=== PATIENT | female | born 1975 | race Caucasian/White ===

== ENCOUNTER 2018-04-15 09:50 | Day surgery (SDC) | payer BC ==
[2018-04-14 11:08] VITALS: BMI 37.0
[2018-04-15] MEDS ORDERED: ceFAZolin SODIUM 1 GM VIAL ONE (11:04)
[2018-04-15] MEDS ORDERED: fentaNYL CITRATE 250 MCG/5 ML VIAL ONE (11:05)
[2018-04-15] MEDS ORDERED: MIDAZOLAM HCL 2 MG/2 ML SINGLE DOSE VIAL ONE (11:05)
[2018-04-15] MEDS ORDERED: PROPOFOL 20 ML ONE ×3 (11:05→12:02)
[2018-04-15] MEDS ORDERED: ROCURONIUM BROMIDE 50 MG/5 ML VIAL ONE ×2 (11:05)
[2018-04-15] MEDS ORDERED: ceFAZolin SODIUM 1 GM VIAL IVPB ONE (11:44)
[2018-04-15] MEDS ORDERED: ONDANSETRON 4 MG/2 ML VIAL ONE (11:54)
[2018-04-15] MEDS ORDERED: DEXAMETHASONE SOD PHOSPHATE 4 MG/1 ML VIAL ONE (11:54)
[2018-04-15] MEDS ORDERED: BUPIVACAINE HCL/PF 0.5% (5MG/ML) 10 ML VIAL ONE (12:31)
[2018-04-15] MEDS ORDERED: ONDANSETRON 4 MG/2 ML VIAL IVPUSH PRN ×2 (12:35→13:29)
[2018-04-15] MEDS ORDERED: ENOXAPARIN NA (PORCINE) 40 MG/0.4 ML DISP.SYRIN SQ ONE ×3 (12:35→16:40)
[2018-04-15] MEDS ORDERED: oxyCODONE HCL 5 MG TABLET PO PRN (12:35)
[2018-04-15] MEDS ORDERED: BUPIVACAINE HCL/PF 0.5% (5MG/ML) 10 ML VIAL IJ ONE (12:40)
[2018-04-15] MEDS ORDERED: NEOSTIGMINE METHYLSULFATE 0.5 MG/1 ML - 10 ML MDV ONE (12:41)
[2018-04-15] MEDS ORDERED: GLYCOPYRROLATE 0.2 MG/1 ML VIAL ONE ×2 (12:41→13:06)
--- NOTE | 2018-04-15 12:41 | OP ---
Operative Note - Note: Operative Date: 04/15/18 Pre-Operative Diagnosis: Ventral Hernia Operation: Repair of Ventral Hernia. Laparoscopic Lysis of Adhesions. Diagnostic Laparoscopy Findings: Large amount of omentum in Ventral Hernia and Laparoscopic lysis of adhesions performed as omentum was reduced from ventral hernia. Primary repair performed on Ventral Hernia with interrupted sutures. Post-Operative Diagnosis: Same as Pre-op (Abdominal Adhesions) Surgeon: Fritz Montejo Buying Agent: Lucas Prince Anesthesia: General Specimens Removed: Omentum and skin scar Estimated Blood Loss (mls): 30 Operative Report Dictated: Yes
[2018-04-15] MEDS ORDERED: SODIUM CHLORIDE 1,000 ML IV SCH (12:45)
--- NOTE | 2018-04-15 13:25 | SURG ---
Surgery Manager Perioperative Note Manager Perioperative: Lucas Prince PA-C Date of Service: 04/15/18 Diagnosis: Incarcerated incisional hernia Procedure: Repair of Ventral Hernia. Laparoscopic Lysis of Adhesions. Diagnostic Laparoscopy I was present for the entirety of the operative procedure. For further detail, please refer to operative report. Visit type - Case Type Case Type: Scheduled - New patient This patient is new to me today: Yes Date on this admission: 04/15/18
[2018-04-15] MEDS ORDERED: LACTATED RINGERS SOLUTION 1,000 ML IV SCH (13:30)
[2018-04-15] MEDS ORDERED: FAMOTIDINE 20 MG/50 ML IVPB 20 MG/50 ML MG IVPB ONE (13:58)
[2018-04-15] MEDS ORDERED: FAMOTIDINE 20 MG PREMIXED IVPB IVPB ONE (14:00)
[2018-04-15 14:31] LABS: HEMATOCRIT 43.2 % (32.4-45.2); HEMOGLOBIN 15.2 GM/dL (10.7-15.3); MCH 31.4 pg (25.7-33.7); MCHC 35.1 g/dl (32.0-36.0); MEAN CELL VOLUME 89.7 fl (80-96); MEAN PLT VOLUME 8.4 fl (7.5-11.1); PLATELET COUNT 211 K/MM3 (134-434); RBC 4.82 M/mm3 (3.60-5.2); RDW 13.5 % (11.6-15.6); WHITE BLOOD COUNT 7.2 K/mm3 (4.0-10.0)
[2018-04-15 15:53] VITALS: BP 130/74; PULSE 67; TEMP 97.2
--- NOTE | 2018-04-15 19:58 | OP ---
DATE OF OPERATION: 04/15/2018 PREOPERATIVE DIAGNOSIS: Abdominal wall ventral hernia. POSTOPERATIVE DIAGNOSIS: 1. Abdominal wall ventral hernia. 2. Abdominal adhesions. PROCEDURE PERFORMED: 1. Repair of ventral hernia. 2. Laparoscopic lysis of adhesions. 3. Diagnostic laparoscopy. OPERATING SURGEON: Fritz Montejo M.D. AGENCY CASHIER: Ar Negrete ANESTHESIA: General. OPERATIVE PROCEDURE: The patient was brought into the operating room, placed on the OR table in the supine position. All precautions were taken initially including padding for the back, and Venodyne boots were placed on both lower extremities. At that point, the abdomen was prepped and draped in the usual manner. A Veress needle was placed in the left upper quadrant, and a pneumoperitoneum was established. A number 5 bladeless trocar was placed under direct vision with a laparoscopic camera into this area in the left upper quadrant. Once this was done, there were adhesions noted between the omentum and the abdominal wall in the area of the hernia in the midline. Using the camera as a guide, a number 5 bladeless trocar was then placed laterally in the left costal margin, and a number 5 bladeless trocar just to the left and below the umbilicus. Using the last trocar with number camera scope, the 2 left upper quadrant trocars were used laparoscopic instruments and also with the LigaSure device were used to reduce the omentum and the fat that was in the hernia sac and reduced into the abdominal cavity. Once this was done completely, it was decided that a primary repair would be performed. At this point an incision was made over the midline area where the previous hernia had been. This incision was done oval in order to include the scar, to resect it. Once this went through the skin and subcutaneous tissue, it then was directed to the fascia where the approximately 3.5-cm defect was noted. Once this fascia was cleaned off of all scar tissue, the fascia had good edges and decided our primary repair would be performed. This was done with 0 Vicryl suture in an interrupted fashion approximately 4 in number, including [id number], and when it was completed, the repair was completely intact. Attention was now directed back to the laparoscopic instruments where the abdomen was reinflated, and the closure looked very secure from inside. Under direct vision all trocars were removed, and pneumoperitoneum released. All trocar sites and the incision received 0.25% Marcaine. The site of repair was first closed with 3-0 Vicryl in the subcutaneous fascia, then all incisions were closed with 4-0 Biosyn in subcuticular fashion. Dressings were applied, patient woken up from anesthesia and transferred out of the operating room to the recovery room in stable condition. ANESTHESIA: General. SURGEON: Fritz Montejo M.D. AGENCY CASHIER: Ar Negrete EXPECTED BLOOD LOSS: 30 mL DISPOSITION: Patient transferred to recovery room in stable condition. Aaron AUGUSTE/[id number]
[2018-04-15] MEDS ORDERED: FAMOTIDINE 20 MG/50 ML IVPB 20 MG/50 ML MG IVPB SCH (22:00)
--- NOTE | 2018-04-18 14:36 | PATH ---
Surgical Pathology Report Patient Name: MACK FAJARDO [facility]. Rec. #: [id number] /Age/Gender: 1975 (Age: 43) / F Account: [id number] Location: [facility] SURGICAL Taken: 04/15/2018 Received: 04/15/2018 Reported: 04/18/2018 Physicians: Fritz Montejo M.D. Specimen(s) Received SKIN AND HERNIA SAC CONTENTS Clinical History Ventral hernia Final Diagnosis SKIN AND HERNIA SAC CONTENTS, LAPAROSCOPIC VENTRAL HERNIA REPAIR:MESOTHELIAL LINED FIBROADIPOSE TISSUE CONSISTENT WITH HERNIA SAC AND UNREMARKABLE SKIN WITH UNDERLYING SUBCUTANEOUS TISSUE. Electronically Signed Jesusita Piper M.D. Gross Description Received in formalin labeled "skin and hernia sac contents," is a 2.7 x 0.5 cm trujillo, elliptical, unoriented portion of skin excised to depth of 3.1 cm. The epidermal surface is unremarkable. The underlying soft tissue displays fibromembranous tissue with attached fat, consistent with a hernia sac. Napht[employer] Washing System Operator sections are submitted in one cassette. 04/15/201804/15/2018
== END 2018-04-15 16:50 | disposition home or self-care (01) ==
LOC: JASU-SURG 09:50
PROVIDERS: ATTEND Surgery
PROC: 0WQF4ZZ Repair Abdominal Wall, Percutaneous Endoscopic Approach (ICD-10-PCS; principal; 2018-04-15 11:00)
DX: K43.9 Ventral hernia without obstruction or gangrene (principal)
CPT/HCPCS: 36415; 85027; 88302-TC; 94010; 94760